=== PATIENT | female | born 1945 | race Caucasian/White ===

== ENCOUNTER → 2016-12-05 | Outpatient (CLI) | payer OTHER, MEDICARE ==
--- NOTE | 2016-12-05 14:44 | MA ---
Diagnostic Digital Mammogram Right Breast With iCAD Analysis Reason for examination: Evaluate possible developing asymmetry in the outer posterior right breast no virgilio on the craniocaudal view from the screening study November 19, 2016. Technique: Craniocaudal spot compression view as well is rolled medial and rolled lateral craniocauda l views are obtained. Also, a true lateral is performed. The examination is processed by the [employer] puter-aided detection system. Comparison to older studies dating back to February 2010. Findings: The abnormality does not persist on diagnostic evaluation and it was probably related to humphries perimposition of normal glandular elements on the screening study. The glandular pattern in the oute r posterior right breast is unchanged compared to the older studies. Impression: Negative diagnostic mammography. BI-RADS: 1. Recommendation: Resume routine mammographic screening in one year as long as physical examination is negative. A verbal report was given to the patient. [facility] with send a result letter.
== END ==
LOC: BMCIMAGING 13:46
DX: Z12.39 Encounter for other screening for malignant neoplasm of breast (principal); R92.2 Inconclusive mammogram
CPT/HCPCS: G0206

== ENCOUNTER → 2019-05-06 | Outpatient (CLI) | payer OTHER, MEDICARE | LOC: BMCIMAGING 14:33 ==